=== PATIENT | female | born 1960 | race Caucasian/White ===

== ENCOUNTER → 2024-10-10 13:13 | Outpatient (REF) | payer BC, SELFPAY | LOC: WDC 13:13 | PROVIDERS: ATTENDING PHYSICIAN Physician Assistant Medical | DX: Z01.419 Encounter for gynecological examination (general) (routine) without abnormal findings (principal); Z12.31 Encounter for screening mammogram for malignant neoplasm of breast | CPT/HCPCS: 77063; 77067 ==